=== PATIENT | female | born 1995 | race Two or more races ===

== ENCOUNTER 2017-09-27 16:43 | Emergency (ER) | payer OTHER ==
[2017-09-27 17:13] VITALS: BP 118/72
--- NOTE | 2017-09-27 18:32 | ED Physician Documentation ---
History of Present Illness - Stated complaint Stated Complaint: COUGHING/VALDOVINOS - Chief complaint Chief Complaint: Fever - Additonal information Additional information: hx from pt healthy 22 y/o f denies daughter sick with influenza she also has fever chills myalgias congestion cough Review of Systems Constitutional: reports: Fever, Chills, Myalgias Nose: reports: Congestion Respiratory: reports: Cough GI: denies: Vomiting, Diarrhea : denies: Now EGA Immunocompromised: denies: Immunocompromised PD PAST MEDICAL HISTORY - Past Medical History Past Medical History: No - Past Surgical History Past Surgical History: No - Present Medications Home Medications: Ambulatory Orders Medication Instructions Recorded Confirmed Benzonatate [Tessalon] 100 mg PO TID PRN #20 capsule 09/27/17 Fluticasone [Flonase] 1 sprays JOSE BID PRN #1 bottle 09/27/17 guaiFENesin/DEXTROMETHORPHAN 10 ml PO Q6H PRN #120 ml 09/27/17 [Robitussin Dm] - Allergies Allergies/Adverse Reactions: Allergies Allergy/AdvReac Type Severity Reaction Status Date / Time No Known Drug Allergies Allergy Verified 09/27/17 17:13 - Social History Does the pt smoke?: No Smoking Status: Never smoker PD ED PE NORMAL - Vitals Vital signs reviewed: Yes - General General: Alert and oriented X 3, No acute distress - HEENT HEENT: PERRL, Ears normal, Moist mucous membranes, Pharynx benign - Neck Neck: Supple, no meningeal sign - Cardiac Cardiac: RRR - Respiratory Respiratory: No respiratory distress, Clear bilaterally - Derm Derm: Normal color - Neuro Neuro: Alert and oriented X 3 Results - Vitals Vitals: Vital Signs - 24 hr 09/27/17 17:11 Temperature 37.1 C Heart Rate 103 H Respiratory 17 Rate Blood Pressure 118/72 O2 Saturation 99 Oxygen O2 Source Room air Departure - Departure Disposition: Home, Self Care Clinical Impression: Influenza Condition: Good Instructions: ED Flu Prescriptions: Benzonatate [Tessalon] 100 mg PO TID PRN #20 capsule PRN Reason: to ease cough Fluticasone [Flonase] 1 sprays JOSE BID PRN #1 bottle PRN Reason: allergies guaiFENesin/DEXTROMETHORPHAN [Robitussin Dm] 10 ml PO Q6H PRN #120 ml PRN Reason: Cough Comments: Your symptoms are very consistent with the flu Your lungs sound clear so I don't think you have pneumonia Your daughter is on tamiflu but I don't think you need to be on that medication - you have already been sick for 48 hr, you are otherwise healthy, tamiflu has many side effects including neurologic issues and you are the sole adult responsible for your children during the day. But I did prescribed medication to ease you symptoms
== END 2017-09-27 19:09 | disposition home or self-care (01) ==
LOC: ED 16:43
DX: J11.1 Influenza due to unidentified influenza virus with other respiratory manifestations (principal)
CPT/HCPCS: 99283

== ENCOUNTER 2022-03-27 08:00 | Outpatient (CLI) | payer OTHER | END 2022-03-27 23:59 | disposition home or self-care (01) | LOC: LAB.N 08:00 | PROVIDERS: ATTEND Nurse Practitioner | DX: N39.0 Urinary tract infection, site not specified (principal) | CPT/HCPCS: 87086 ==

== ENCOUNTER 2023-10-31 07:33 | Outpatient (CLI) | payer OTHER ==
--- NOTE | 2023-11-01 08:38 | Ultrasound Report ---
LIMITED ULTRASOUND OF RIGHT BREAST: 10/31/2023 CLINICAL: Palpable right breast lump by physician. Comparison is made to exam dated: 10/31/2023 mammogram - [facility]. Color flow and real-time ultrasound of the right breast 11-12 o'clock region were performed. Saleem sc melissa images of the real-time examination were reviewed. No significant abnormalities were seen sonographically in the right breast. Specifically, no finding to correspond to the patient's palpable abnormalities. IMPRESSION: NEGATIVE There is no sonographic evidence of malignancy. Normal tissue is present in both palpable areas. Clinical follow up is recommended for symptoms as needed. Screening mammography beginning at age 40 is recommended. Findings and recommendations were conveyed to the patient at time of exam. This exam was interpreted at Station ID: [id number]. Electronically Signed By: Laney noguera/:10/31/2023 08:50:53 letter sent: No_Letter Ultrasound BI-RADS: 1 Negative BI-RADS CATEGORY: (1) - 1 Unspecified - other recall n/a LATERALITY: (B)
--- NOTE | 2023-11-01 08:38 | Mammography Report ---
BILATERAL DIGITAL DIAGNOSTIC MAMMOGRAM 3D/2D WITH EXAGGERATED CC LATEROMEDIAL: 10/31/2023 CLINICAL: Palpable right breast lump. Baseline exam. No prior exams were available for comparison. There are scattered areas of fibroglandular density in both breasts (category b / 25%-50% glandular t issue). No significant masses, calcifications, or other findings are seen in either breast. Specifically, no finding to correspond to the patient's palpable abnormalities. Bilateral mammograms appear normal. IMPRESSION: INCOMPLETE: NEEDS ADDITIONAL IMAGING EVALUATION Baseline bilateral mammograms appear normal. There is no abnormality seen in the right breast to correspond with the palpable abnormality at 11 o' clock which is probably hormonal stimulation and normal fibroglandular tissue. There is also no abnormality seen in the right breast to correspond with the palpable abnormality at 1 o'clock which is also probably hormonal stimulation and normal fibroglandular tissue. Ultrasound is recommended for full evaluation of these areas. This was performed immediately followin g this exam. Based on the Tyrer Cuzick model (a risk assessment model) the patient's lifetime risk is 10.9% and he r 10 year risk is 0.4%. According to the ACR, ACS, and NCCN guidelines, an annual breast MRI exam miguel ng with mammogram is recommended if the patient's lifetime risk is 20% or greater. This exam was interpreted at Station ID: [id number]. NOTE: For mammograms, a report in lay terms will be sent to the patient. Approximately 15% of breast malignancies will not be visualized mammographically. In the management of a palpable breast mass, a negative mammogram must not discourage biopsy of a clinically suspicious lesion. Electronically Signed By: Laney noguera/:10/31/2023 08:36:51 ACR BI-RADS Category 0: Incomplete 3340F PARENCHYMAL PATTERN: (A) - The breast(s) demonstrate(s) scattered fibroglandular densities. BI-RADS CATEGORY: (0) - 0 Ultrasound [id number] Immediate follow-up LATERALITY: (B)
== END 2023-10-31 07:34 | disposition home or self-care (01) ==
LOC: DI 07:33
PROVIDERS: ATTEND Nurse Practitioner Family
DX: N63.10 Unspecified lump in the right breast, unspecified quadrant (principal); R92.323 Mammographic fibroglandular density, bilateral breasts